=== PATIENT | female | born 1970 | race Caucasian/White ===

== ENCOUNTER 2016-06-25 17:12 | Emergency (ER) | payer OTHER ==
[2016-06-25 17:50] VITALS: TEMP 98.3; BMI 21.5
[2016-06-25] MEDS ORDERED: methylPREDNISolone NA SUCC 125 MG/2 ML VIAL ONE ×2 (18:27→18:28)
[2016-06-25] MEDS ORDERED: EPINEPHrine/PF 1 MG/1 ML (1:1,000) AMPULE ONE (18:28)
[2016-06-25] MEDS ORDERED: FAMOTIDINE 20 MG/50 ML IVPB 50 ML IVPB ONE ×2 (18:29→18:33)
--- NOTE | 2016-06-25 18:30 | PDOC ---
History of Present Illness - History of Present Illness Initial Comments: 06/25/16 20:03 Patient is a 46 year old female with significant medical hx of asthma and impaired hearing (uses sign language) who is presenting to the ED with allergic reaction from today. The patient ate shrimp today at 3:30 in the afternoon even though she knows she is allergic. Immediately afterward she vomited and her eyes became swollen. The patient is also complaining of shaking. The patient was brought to the ED by her friend once she returned home. Denies fever, chills, nausea, abdominal pain, shortness of breath, respiratory distress, rash or hives. <Hillary Belle - Last Filed: 06/25/16 19:54> <Donna Aden - Last Filed: 06/26/16 00:57> - General Chief Complaint: Allergic Reaction Stated Complaint: ALLERGIC REACTION Time Seen by Provider: 06/25/16 18:30 Past History <Hillary Belle - Last Filed: 06/25/16 19:54> - Past Medical History Asthma: Yes - Psycho/Social/Smoking Cessation Hx Suicidal Ideation: No Smoking History: Never smoked Have you smoked in the past 12 months: No Hx Alcohol Use: No Drug/Substance Use Hx: No <Donna Aden - Last Filed: 06/26/16 00:57> - Past Medical History Allergies/Adverse Reactions: Allergies Allergy/AdvReac Type Severity Reaction Status Date / Time No Known Allergies Allergy Verified 06/25/16 17:44 Home Medications: Ambulatory Orders Cyclobenzaprine HCl 5 mg PO TID 04/08/16 Ibuprofen [Motrin -] 600 mg PO TID 04/08/16 Review of Systems - Review of Systems Comments:: 06/25/16 20:05 CONSTITUTIONAL: Present: shaking Absent: fever, chills, diaphoresis, generalized weakness, malaise, loss of appetite HEENT: Present: eyelid swelling Absent: rhinorrhea, nasal congestion, throat pain, throat swelling, difficulty swallowing, mouth swelling, ear pain CARDIOVASCULAR: Absent: chest pain, syncope, palpitations, irregular heart rate, lightheadedness , peripheral edema RESPIRATORY: Absent: cough, shortness of breath, dyspnea with exertion, orthopnea, wheezing, stridor, hemoptysis GASTROINTESTINAL: Present: vomiting Absent: abdominal pain, abdominal distension, nausea, diarrhea, constipation, melena, hematochezia GENITOURINARY: Absent: dysuria, frequency, urgency, hesitancy, hematuria, flank pain, genital pain MUSCULOSKELETAL: Absent: myalgia, arthralgia, joint swelling SKIN: Absent: rash, itching, pallor HEMATOLOGIC/IMMUNOLOGIC: Absent: easy bleeding, easy bruising, lymphadenopathy, frequent infections ENDOCRINE: Absent: unexplained weight gain, unexplained weight loss, heat intolerance, cold intolerance NEUROLOGIC: Absent: headache, focal weakness or paresthesia, dizziness, unsteady gait, seizure, mental status changes, bladder or bowel incontinence. PSYCHIATRIC: Absent: anxiety, depression, suicidal or homicidal ideation, hallucinations <Hillary Belle - Last Filed: 06/25/16 19:54> *Physical Exam - Vital Signs Last Vital Signs Temp Pulse Resp BP Pulse Ox 98.3 F 106 H 26 H 130/87 98 06/25/16 17:44 06/25/16 18:40 06/25/16 18:40 06/25/16 18:40 06/25/16 18:40 - Physical Exam Comments: 06/25/16 20:07 GENERAL: Well developed, well nourished. Awake and alert. Shaking. Mild distress. HEENT: Normocephalic, atraumatic. PERRLA, EOMI. No conjunctival pallor. Eyes swollen shut. Sclera are non-icteric. Moist mucous membranes. Oropharynx is clear. Uvula is midline and non-edematous. NECK: Supple. Full ROM. No JVD. Carotid pulses 2+ and symmetric, without bruits. No thyromegaly. No lymphadenopathy. CARDIOVASCULAR: Tachycardic. No murmurs, rubs, or gallops. Distal pulses are 2+ and symmetric. PULMONARY: No evidence of respiratory distress. Scant wheezing. No rales or rhonchi. ABDOMINAL: Soft. Non-tender. Non-distended. No rebound or guarding. No organomegaly. Normoactive bowel sounds. MUSCULOSKELETAL: Normal range of motion at all joints. No bony deformities or tenderness. No CVA tenderness. EXTREMITIES: No cyanosis. No clubbing. No edema. No calf tenderness. SKIN: Warm and dry. Normal capillary refill. No hives. No rashes. No jaundice. NEUROLOGICAL: Alert, awake, appropriate. Cranial nerves 2-12 intact. Normal speech. Gait is normal without ataxia. PSYCHIATRIC: Cooperative. Good eye contact. Appropriate mood and affect. <Hillary Belle - Last Filed: 06/25/16 19:54> - Vital Signs Last Vital Signs Temp Pulse Resp BP Pulse Ox 98.3 F 80 20 137/76 98 06/25/16 17:44 06/25/16 17:44 06/25/16 17:44 06/25/16 17:44 06/25/16 17:44 <Donna Aden - Last Filed: 06/26/16 00:57> ED Treatment Course - Medications Given in the ED: ED Medications Discontinued Medications Generic Name Dose Route Start Last Admin Trade Name Freq PRN Reason Stop Dose Admin Albuterol Sulfate 1 amp 06/25/16 18:36 06/25/16 18:46 Ventolin 0.083% Nebulizer Soln - NEB 06/25/16 18:37 1 amp ONCE ONE Administration Diphenhydramine HCl 50 mg 06/25/16 18:34 06/25/16 18:46 Benadryl Injection - IVPUSH 06/25/16 18:35 50 mg ONCE ONE Administration Epinephrine HCl 0.3 mg 06/25/16 18:35 06/25/16 18:46 Epipen 0.3mg - IM 06/25/16 18:36 0.3 mg ONCE ONE Administration Famotidine/Sodium Chloride 50 mls @ 100 mls/hr 06/25/16 18:33 06/25/16 18:46 Pepcid 20 Mg Premixed Ivpb - IVPB 06/25/16 19:02 100 mls/hr ONCE ONE Administration Methylprednisolone Sodium Succinate 125 mg 06/25/16 18:31 06/25/16 18:46 Solu-Medrol - IVPB 06/25/16 18:32 125 mg ONCE ONE Administration <Hillary Belle - Last Filed: 06/25/16 19:54> - LABORATORY CBC & Chemistry Diagram: 06/25/16 20:10 06/25/16 20:10 <Donna Aden - Last Filed: 06/26/16 00:57> Medical Decision Making - Medical Decision Making 06/25/16 20:13 Patient came out of the room stating she couldnt breathe and gasping for air. She was put on O2. Lung exam (at this time): Moving air in all lung pulliam. No wheezing was appreciated. <Hillary Belle - Last Filed: 06/25/16 19:54> *DC/Admit/Observation/Transfer - Attestations Scribe Attestion: 06/25/16 20:10 Documentation prepared by Hillary Belle, acting as medical doctor md/medical director for Donna Aden MD. <Hillary Belle - Last Filed: 06/25/16 19:54> <Donna Aden - Last Filed: 06/26/16 00:57> Diagnosis at time of Disposition: Allergy to seafood - Discharge Dispostion Disposition: HOME Condition at time of disposition: Stable - Referrals Referrals: Ivan Tran MD [Primary Care Provider] - - Patient Instructions Printed Discharge Instructions: DI Shellfish Allergy Additional Instructions: please AVOID SHRIMP car pick up driver your prescriptions at [facility]
[2016-06-25] MEDS ORDERED: methylPREDNISolone NA SUCC 125 MG/2 ML VIAL IVPB ONE (18:31)
[2016-06-25] MEDS ORDERED: EPINEPHrine 1:1,000 0.3 MG/0.3 ML SYR IM ONE (18:35)
[2016-06-25] MEDS ORDERED: ALBUTEROL SO4 0.083% IH SOL 2.5 MG/3 ML VIAL.NEB. NEB ONE (18:36)
[2016-06-25] MEDS ORDERED: ONDANSETRON 4 MG/2 ML VIAL ONE (20:04)
[2016-06-25] MEDS ORDERED: ONDANSETRON 4 MG/2 ML VIAL IVPUSH ONE (20:09)
[2016-06-25] MEDS ORDERED: ALBUTEROL SO4 2.5/IPRATROPIUM 0.5 INH SOL 3 ML VIAL.NEB. NEB ONE (20:10)
[2016-06-25 20:21] LABS: BASOPHIL 0.1 % (0-2.0); EOSINOPHIL 0.6 % (0-4.5); MCHC 33.1 g/dl (32.0-36.0); MEAN CELL VOLUME 93.6 fl (80-96); MEAN PLT VOLUME 8.5 fl (7.5-11.1); PLATELET COUNT 186 K/MM3 (134-434); RDW 12.6 % (11.6-15.6); WHITE BLOOD COUNT 12.9 K/mm3 (4.0-10.0)
[2016-06-25 20:43] LABS: ALBUMIN 3.5 g/dl (3.4-5.0); ANION GAP 11 (8-16); BILIRUBIN,TOTAL 0.4 mg/dL (0.2-1.0); CALCIUM 7.6 mg/dL (8.5-10.1); CO2 20 mmol/L (21-32); CREATININE 0.7 mg/dL (0.55-1.02); GLUCOSE,RANDOM 131 mg/dL (74-106); SGOT/AST 25 U/L (15-37); SGPT/ALT 20 U/L (12-78); TOT PROT 6.3 g/dl (6.4-8.2)
[2016-06-25 20:44] LABS: ALK PHOS 86 U/L (45-117)
[2016-06-25 20:54] VITALS: BP 112/71; PULSE 98
== END 2016-06-26 01:19 | disposition home or self-care (01) ==
LOC: JER 17:12
PROC: 3E0F7GC Introduction of Other Therapeutic Substance into Respiratory Tract, Via Natural or Artificial Opening (ICD-10-PCS; principal; 2016-06-25)
PROC: 3E0F7GC Introduction of Other Therapeutic Substance into Respiratory Tract, Via Natural or Artificial Opening (ICD-10-PCS; 2016-06-25)
PROC: 3E023GC Introduction of Other Therapeutic Substance into Muscle, Percutaneous Approach (ICD-10-PCS; 2016-06-25)
PROC: 3E033GC Introduction of Other Therapeutic Substance into Peripheral Vein, Percutaneous Approach (ICD-10-PCS; 2016-06-25)
PROC: 3E0333Z Introduction of Anti-inflammatory into Peripheral Vein, Percutaneous Approach (ICD-10-PCS; 2016-06-25)
DX: T78.1XXA Other adverse food reactions, not elsewhere classified, initial encounter (principal); T78.3XXA Angioneurotic edema, initial encounter; X58.XXXA Exposure to other specified factors, initial encounter; Z91.013 Allergy to seafood
CPT/HCPCS: 36415; 80053; 84703; 85025; 99283-25